=== PATIENT | male | born 1950 | race Caucasian/White ===

== ENCOUNTER 2023-11-02 17:07 | Inpatient (IN) | payer MEDICARE, MEDICAID ==
[~2023-11-02] VITALS: Ht 157.5 cm; Wt 86.6 kg
[2023-11-02 19:00] VITALS: BP 120/75; PULSE 82; RESP 18; TEMP 98; O2SAT 96
[2023-11-02] MEDS ORDERED: ROPINIRole HCL 0.25 MG TABLET PO PRN (19:00)
[2023-11-02 19:30] VITALS: BP 120/75; PULSE 82; RESP 18; TEMP 98
[2023-11-02] MEDS ORDERED: DEXTROSE 50%-WATER 25 GM/50 ML SYRINGE IVP PRN (19:45)
[2023-11-02 20:35] VITALS: BP 141/86; PULSE 80; RESP 18; TEMP 97.4
[2023-11-02] MEDS: DOCUSATE SODIUM 100 MG CAPSULE PO SCH (21:04)
[2023-11-02] MEDS: SENNOSIDES 8.6 MG TABLET PO SCH (21:04)
[2023-11-02] MEDS: MELATONIN 3 MG TABLET PO PRN (21:04)
[2023-11-02] MEDS: ATORVASTATIN CALCIUM 20 MG TABLET PO SCH (21:04)
[2023-11-02] MEDS: TAMSULOSIN HCL 0.4 MG CAPSULE PO SCH (21:04)
[2023-11-02] MEDS: OMEGA-3/DHA/EPA/FISH OIL 1,000 MG CAPSULE PO SCH (21:07)
[2023-11-02] MEDS: INSULIN LISPRO 100 UNITS/ML SQ PRN (21:13)
[2023-11-03 00:23] VITALS: O2SAT 97
[2023-11-03 02:29] LABS: GLUCOMETER DEV NAME(LOC) 2WR.1D; GLUCOSE,POINT OF CARE 152 MG/DL (70-110)
[2023-11-03 06:53] LABS: GLUCOMETER DEV NAME(LOC) 2WR.2B; GLUCOSE,POINT OF CARE 107 MG/DL (70-110)
[2023-11-03 08:10] VITALS: BP 123/76; PULSE 63; RESP 18; TEMP 98.3; O2SAT 100
[2023-11-03 08:28] LABS: BASOPHILS % (AUTO) 1.2 % (0.0-2.0); HEMATOCRIT 44.8 % (41-53); LYMPHOCYTES # (AUTO) 2.8 K/uL (1.0-4.8); LYMPHOCYTES % (AUTO) 32.9 % (22.0-44.0); MEAN CORPUSCULAR HEMOGLOBIN 29.4 pg (26.0-34.0); MEAN CORPUSCULAR HGB CONC 33.4 G/dL (31.0-37.0); MEAN CORPUSCULAR VOLUME 88 fL (80-100); MONOCYTES # (AUTO) 0.7 K/uL (0.1-1.0); NEUTROPHILS # (AUTO) 4.3 K/uL (1.8-7.7); NEUTROPHILS % (AUTO) 50.9 % (40.0-70.0); PLATELET COUNT (AUTO) 216 K/uL (150-450); RED BLOOD CELL COUNT(AUTO) 5.09 MIL/uL (4.50-5.90); RED CELL DISTRIBUTION WIDTH 14.3 % (11.5-14.5); WHITE BLOOD COUNT (AUTO) 8.4 K/uL (4.5-11.0)
[2023-11-03 08:47] LABS: ALANINE AMINOTRANSFERASE 38 U/L (12-78); ALBUMIN 3.4 g/dL (3.4-5.0); ALKALINE PHOSPHATASE 53 U/L (46-116); ANION GAP 9 mmol/L (8-16); ASPARTATE AMINOTRANSFERASE 20 U/L (15-37); BILIRUBIN,TOTAL 0.5 mg/dL (0.1-1.0); CALCIUM, TOTAL 8.8 mg/dL (8.8-10.5); CARBON DIOXIDE 26 mmol/L (22-29); CHLORIDE 104 mmol/L (98-107); CREATININE 1.01 mg/dL (0.60-1.30); GLOMERULAR FILTR. RATE CALC > 60 mL/min (>60); GLUCOSE,RANDOM 121 mg/dL (70-110); POTASSIUM 3.8 mmol/L (3.5-5.1); SODIUM SERUM 139 mmol/L (136-145); TOTAL PROTEIN, SERUM 7.3 g/dL (6.4-8.2); UREA NITROGEN, BLOOD 23 mg/dL (7-18)
[2023-11-03] MEDS: MetFORMIN HCL 500 MG TABLET PO SCH (08:58)
[2023-11-03] MEDS: ETHYL ALCOHOL 62% ANTISEPTIC NASAL SANITIZER 0.6 ML AMPUL NASAL SCH (08:58)
[2023-11-03] MEDS: LISINOPRIL 10 MG TABLET PO SCH (08:59)
[2023-11-03] MEDS: FINASTERIDE 5 MG TABLET PO SCH (08:59)
[2023-11-03] MEDS: CHOLECALCIFEROL (VIT D3) 1,000 UNITS [25 MCG] TABLET PO SCH (08:59)
[2023-11-03 12:49] LABS: GLUCOMETER DEV NAME(LOC) 2WR.1D; GLUCOSE,POINT OF CARE 102 MG/DL (70-110)
[2023-11-03] MEDS: ACETAMINOPHEN 325 MG TABLET PO PRN (14:36)
[2023-11-03 20:00] VITALS: BP 118/72; PULSE 71; RESP 18; TEMP 97.4; O2SAT 98
[2023-11-03 20:09] LABS: GLUCOMETER DEV NAME(LOC) 2WR.2B; GLUCOSE,POINT OF CARE 109 MG/DL (70-110)
[2023-11-03 21:10] VITALS: PULSE 73; RESP 16; O2SAT 96
[2023-11-03 21:38] LABS: GLUCOMETER DEV NAME(LOC) 2WR.2B; GLUCOSE,POINT OF CARE 127 MG/DL (70-110)
[2023-11-03 21:51] VITALS: O2SAT 98
[2023-11-04 06:38] LABS: GLUCOMETER DEV NAME(LOC) 2WR.1D; GLUCOSE,POINT OF CARE 108 MG/DL (70-110)
[2023-11-04 08:00] VITALS: BP 124/68; PULSE 60; RESP 1; TEMP 98.4; O2SAT 97; O2SAT 98
[2023-11-04 12:29] LABS: GLUCOMETER DEV NAME(LOC) 2WR.2B; GLUCOSE,POINT OF CARE 88 MG/DL (70-110)
[2023-11-04 17:12] LABS: GLUCOMETER DEV NAME(LOC) 2WR.2B; GLUCOSE,POINT OF CARE 121 MG/DL (70-110)
[2023-11-04 20:03] VITALS: BP 137/74; PULSE 72; RESP 18; TEMP 98.6; O2SAT 96
[2023-11-04 21:00] VITALS: PULSE 71; RESP 18; O2SAT 97
[2023-11-04 21:16] VITALS: PULSE 71; RESP 18; O2SAT 97
[2023-11-04 21:23] LABS: GLUCOMETER DEV NAME(LOC) 2WR.2B; GLUCOSE,POINT OF CARE 100 MG/DL (70-110)
[2023-11-04 22:27] VITALS: O2SAT 96
[2023-11-05 07:18] LABS: GLUCOMETER DEV NAME(LOC) 2WR.1D; GLUCOSE,POINT OF CARE 100 MG/DL (70-110)
[2023-11-05 08:30] VITALS: BP 118/64; PULSE 68; RESP 18; TEMP 98.1; O2SAT 96
[2023-11-05 12:43] LABS: GLUCOMETER DEV NAME(LOC) 2WR.2B; GLUCOSE,POINT OF CARE 104 MG/DL (70-110)
[2023-11-05 13:33] VITALS: O2SAT 96
[2023-11-05 17:37] LABS: GLUCOMETER DEV NAME(LOC) 2WR.2B; GLUCOSE,POINT OF CARE 91 MG/DL (70-110)
[2023-11-05 20:02] VITALS: BP 113/67; PULSE 78; RESP 18; TEMP 98.2; O2SAT 98
[2023-11-05 21:02] LABS: GLUCOMETER DEV NAME(LOC) 2WR.2B; GLUCOSE,POINT OF CARE 124 MG/DL (70-110)
[2023-11-05 21:30] VITALS: PULSE 16; PULSE 77; RESP 16; O2SAT 98
[2023-11-05 21:42] VITALS: O2SAT 98
[2023-11-06 07:17] LABS: GLUCOMETER DEV NAME(LOC) 2WR.2B; GLUCOSE,POINT OF CARE 103 MG/DL (70-110)
[2023-11-06 08:08] VITALS: BP 111/56; PULSE 68; RESP 18; TEMP 98.3; O2SAT 100
[2023-11-06 12:38] LABS: GLUCOMETER DEV NAME(LOC) 2WR.2B; GLUCOSE,POINT OF CARE 88 MG/DL (70-110)
[2023-11-06 17:43] LABS: GLUCOMETER DEV NAME(LOC) 2WR.2B; GLUCOSE,POINT OF CARE 86 MG/DL (70-110)
[2023-11-06 20:10] VITALS: BP 122/67; PULSE 85; RESP 18; TEMP 98.9; O2SAT 95
[2023-11-06 20:22] VITALS: PULSE 68; RESP 17; O2SAT 96
[2023-11-06 20:23] VITALS: PULSE 68; RESP 17; O2SAT 96
[2023-11-06 22:25] VITALS: O2SAT 95
[2023-11-06 22:32] LABS: GLUCOMETER DEV NAME(LOC) 2WR.2B; GLUCOSE,POINT OF CARE 125 MG/DL (70-110)
[2023-11-07 07:13] LABS: GLUCOMETER DEV NAME(LOC) 2WR.1D; GLUCOSE,POINT OF CARE 105 MG/DL (70-110)
[2023-11-07 07:50] VITALS: BP 116/75; PULSE 66; RESP 18; TEMP 98.8; O2SAT 97
[2023-11-07 08:27] VITALS: O2SAT 97
[2023-11-07 12:07] LABS: GLUCOMETER DEV NAME(LOC) 2WR.1D; GLUCOSE,POINT OF CARE 100 MG/DL (70-110)
[2023-11-07 16:50] LABS: GLUCOMETER DEV NAME(LOC) 2WR.1D; GLUCOSE,POINT OF CARE 91 MG/DL (70-110)
[2023-11-07 19:25] VITALS: BP 130/73; PULSE 76; RESP 18; TEMP 98; O2SAT 98
[2023-11-07 21:45] VITALS: PULSE 66; RESP 16; O2SAT 96
[2023-11-07 22:19] VITALS: O2SAT 98
[2023-11-08 06:45] LABS: GLUCOMETER DEV NAME(LOC) 2WR.1D; GLUCOSE,POINT OF CARE 100 MG/DL (70-110)
[2023-11-08 09:49] VITALS: BP 106/63; PULSE 61; RESP 18; TEMP 97.5; O2SAT 96
[2023-11-08 09:56] VITALS: O2SAT 96
[2023-11-08 10:04] VITALS: O2SAT 96
[2023-11-08] MEDS ORDERED: OMEG-135 PO (17:26)
[2023-11-08] MEDS ORDERED: LISI-893 PO (17:26)
[2023-11-08] MEDS ORDERED: ATOR20TA65 PO (17:26)
[2023-11-08] MEDS ORDERED: TAMS0.4C94 PO (17:26)
[2023-11-08] MEDS ORDERED: FINA-27 PO (17:26)
[2023-11-08] MEDS ORDERED: CHOL25TA4 PO (17:26)
[2023-11-08] MEDS ORDERED: METF-1211 PO (17:26)
[2023-11-08 18:21] LABS: GLUCOMETER DEV NAME(LOC) 2WR.1D; GLUCOSE,POINT OF CARE 91 MG/DL (70-110)
[2023-11-08 21:00] VITALS: BP 108/62; PULSE 75; RESP 19; TEMP 98.8; O2SAT 96
[2023-11-08 23:13] VITALS: O2SAT 98
[2023-11-09 08:05] VITALS: BP 128/72; PULSE 68; RESP 18; TEMP 98.2; O2SAT 98
[2023-11-09 17:16] LABS: GLUCOMETER DEV NAME(LOC) 2WR.2B; GLUCOSE,POINT OF CARE 89 MG/DL (70-110)
[2023-11-09 20:02] VITALS: BP 123/69; PULSE 85; RESP 18; TEMP 97.5; O2SAT 97
[2023-11-09 22:40] VITALS: O2SAT 97
[2023-11-10 06:51] LABS: GLUCOMETER DEV NAME(LOC) 2WR.2B; GLUCOSE,POINT OF CARE 96 MG/DL (70-110)
[2023-11-10 08:05] VITALS: BP 121/82; PULSE 61; RESP 19; TEMP 97.9; O2SAT 95
[2023-11-10 09:35] VITALS: O2SAT 95
== END 2023-11-10 13:50 | disposition home or self-care (01) | DRG 56 ==
LOC: 2WR 18:17
PROVIDERS: ADMIT Physical Medicine & Rehabilitation; ATTEND Physical Medicine & Rehabilitation
DX: G81.91 Hemiplegia, unspecified affecting right dominant side (principal); G93.6 Cerebral edema; I61.8 Other nontraumatic intracerebral hemorrhage; E85.9 Amyloidosis, unspecified; R47.01 Aphasia; R13.10 Dysphagia, unspecified; E11.9 Type 2 diabetes mellitus without complications; I10 Essential (primary) hypertension; G25.81 Restless legs syndrome; N40.0 Benign prostatic hyperplasia without lower urinary tract symptoms; E66.9 Obesity, unspecified; E78.5 Hyperlipidemia, unspecified; G47.30 Sleep apnea, unspecified; R41.89 Other symptoms and signs involving cognitive functions and awareness; Z68.34 Body mass index [BMI] 34.0-34.9, adult
CPT/HCPCS: 80053; 82962; 85025; 87081; 92507; 92523; 93970; 94660; 97110; 97112; 97116; 97163; 97167; 97530; 97535; 99366